=== PATIENT | male | born 1960 | race Caucasian/White ===

== ENCOUNTER 2017-06-10 10:18 | Emergency (ER) | payer OTHER ==
[2017-06-10 10:47] LABS: BASOPHILS % (AUTO) 2 % (0-3); EOSINOPHILS % (AUTO) 2 % (0-9); HEMATOCRIT 36 % (39-53); MEAN CORPUSCULAR HGB CONC 35.9 gm/dl (32.0-36.0); MEAN CORPUSCULAR VOLUME 96 fL (80-100); MONOCYTES % (AUTO) 13.4 % (0-12); NEUTROPHILS % (AUTO) 59.3 % (37-80)
[2017-06-10 10:58] LABS: ANISOCYTOSIS SLIGHT AMT
[2017-06-10 10:59] LABS: ALKALINE PHOSPHATASE 174 IU/L (46-116); ALT 56 IU/L (14-63); AST 54 IU/L (15-37); BILIRUBIN,TOTAL 0.5 mg/dl (0.2-1.0); BLOOD UREA NITROGEN 14 mg/dl (7-18); CALCIUM 8.9 mg/dl (8.5-10.1); CREATININE 0.84 mg/dl (0.80-1.30); GLOM FILT RATE 95 mL/min (>60); GLUCOSE 95 mg/dl (74-106); POTASSIUM 3.6 mMol/L (3.5-5.1); SALICYLATE < 2.8 mg/dl (2.8-30.0); SODIUM 140 mMol/L (136-145); THYROID STIMULATING HORMONE 6.722 uIU/ml (0.358-3.740)
[2017-06-10 11:00] LABS: ALCOHOL < 0.003 gm/dl (0.000-0.08)
[2017-06-10 11:18] VITALS: BP 131/81; PULSE 71; RESP 16; TEMP 96.8; O2SAT 99
== END 2017-06-10 14:35 ==
LOC: ED 10:18
DX: F10.20 Alcohol dependence, uncomplicated (principal); Y90.0 Blood alcohol level of less than 20 mg/100 ml
CPT/HCPCS: 36415; 80053; 80307; 84443; 85025; 99283